=== PATIENT | male | born 1930 | race Caucasian/White ===

== ENCOUNTER 2019-10-05 17:04 | Emergency (ER) | payer MEDICARE ==
[~2019-10-05] VITALS: Ht 170.2 cm; Wt 79.4 kg
--- NOTE | 2019-10-05 17:11 | Emergency Room Report ---
History of Present Illness General Chief Complaint: Syncope Source: Patient, EMS Present Illness HPI 89-year-old male history of CABG, hypertension, CAD, presents with syncopal episode prior to arrival, patient was eating, felt nauseated, felt his vision narrow and then he passed out for a minute woke up suddenly with water being sprayed on his face, severity was moderate, lasting a few minutes no known aggravating factors alleviating factors appear to be stimulation Allergies: Coded Allergies: No Known Allergies (Unverified , 10/05/19) Patient History Past Medical History: see triage record Reviewed Nursing Documentation: PMH: Agreed; PSxH: Agreed Review of Systems All Other Systems: negative except mentioned in HPI Physical Exam Sp02 EP Interpretation: reviewed, normal General Appearance: well appearing, no apparent distress, alert Head: normocephalic, atraumatic Eyes: bilateral eye PERRL, bilateral eye EOMI ENT: uvula midline, moist mucus membranes Neck: supple, thyroid normal, supple/symm/no masses Respiratory: lungs clear, no respiratory distress, no retraction, no accessory muscle use Cardiovascular #1: normal peripheral pulses, regular rate, rhythm, no edema, no gallop, systolic murmur Gastrointestinal: non tender, soft, no guarding, no rebound Musculoskeletal: normal inspection Neurologic: alert, oriented x3 Psychiatric: mood/affect normal Skin: no rash, warm/dry Medical Decision Making Diagnostic Impression: Primary Impression: Syncope and collapse ER Course 89-year-old male presents with syncopal episode differential diagnosis includes syncope, cardiac arrhythmia, ACS We will admit patient Reevaluation 6:58 PM, patient does not want to stay joint decision-making was made with family they want to go home aware of the risks and benefits leaving his medical advice The patient has requested to leave the ED against medical advice. The patient reason(s) for leaving include, but are not limited to, the following: I want to go home. I believe this patient is of sound mind and competent to refuse medical care. The patient is responding and asking questions appropriately. The patient is oriented to person, place and time. The patient is not psychotic, delusional, suicidal, homicidal or hallucinating. The patient demonstrates a normal mental capacity to make decisions regarding their healthcare. The patient is clinically sober and does not appear to be under the influence of any illicit drugs at this time. The patient has been advised of the risks, in layman terms, of leaving AMA which include, but are not limited to , coma, permanent disability, loss of current lifestyle, delay in diagnosis. Alternatives have been offered - the patient remains steadfast in their wish to leave. The patient has been advised that should they change their mind they are welcome to return to this hospital, or any other, at any time. The patient understands that in no way does an AMA discharge mean that I do not want them to have the best medical care available. To this end, I have provided appropriate prescriptions, referrals, and discharge instructions. The patient did sign AMA paperwork. The above discussion was witnessed by another member of staff. Laboratory Tests Test 10/05/19 17:50 Sodium Level 142 MMOL/L (136-145) Potassium Level 3.7 MMOL/L (3.5-5.1) Chloride Level 108 MMOL/L (98-107) H Carbon Dioxide Level 21 MMOL/L (21-32) Anion Gap 13 mmol/L (5-15) Blood Urea Nitrogen 20 mg/dL (7-18) H Creatinine 1.4 MG/DL (0.55-1.30) H Estimate Glomerular Filtration Rate mL/min (>60) Glucose Level 126 MG/DL (74-106) H Calcium Level 8.9 MG/DL (8.5-10.1) Total Bilirubin 0.4 MG/DL (0.2-1.0) Aspartate Amino Transferase (AST) 11 U/L (15-37) L Alanine Aminotransferase (ALT) 20 U/L (12-78) Alkaline Phosphatase 66 U/L (46-116) Troponin I 0.000 ng/mL (0.000-0.056) Pro-B-Type Natriuretic Peptide 348 pg/mL (0-125) H Total Protein 6.6 G/DL (6.4-8.2) Albumin 3.4 G/DL (3.4-5.0) Globulin 3.2 g/dL Albumin/Globulin Ratio 1.1 (1.0-2.7) EKG Diagnostic Results EKG Time: 17:27 EP Interpretation: NSR, rate 68, QTc 448, no acute ST elevations, left axis deviation Rhythm Strip Diag. Results Rhythm Strip Time: 17:34 EP Interpretation: yes Rate: 69 Rhythm: NSR, no PVC's, no ectopy Chest X-Ray Diagnostic Results Chest X-Ray Diagnostic Results : Chest X-Ray Ordered: Yes # of Views/Limited/Complete: 1 View Indication: Shortness of Breath EP Interpretation: Yes Interpretation: other - Enlarged heart blunting of the left costophrenic angle possible mild pulmonary edema Impression: Other - Possible mild pulmonary edema Electronically Signed by: Frank Smallwood MD Disposition: AGAINST MEDICAL ADVICE Condition: Stable [facility] Patient Instructions: Syncope Additional Instructions: The patient was provided with discharge instructions, notified to follow-up with a primary care doctor and or specialist in the next 24-48 hours, and to return to the ED if they have worsening of their symptoms. Please note that this report is being documented using [employer] technology. This can lead to erroneous entry secondary to incorrect interpretation by the dictating instrument. FOLLOW-UP WITH YOUR PACK PRESS OPERATOR Frank Smallwood MD Oct 05, 2019 17:11
[2019-10-05 17:30] VITALS: BP 125/77
--- NOTE | 2019-10-05 18:05 | NUR ---
ED Nurse Note: Pt brought into ED for syncope today without loss of consciousness. Pt denies hitting head or injuring other body part. Pt denies pain, nausea, vomiting. Pt is alert and orientedx4, ambulatory. Skin intact. Pt son who is an MD is present. Pt set up on monitor.
[2019-10-05 18:27] LABS: ANION GAP 13 mmol/L (5-15); BLOOD UREA NITROGEN 20 mg/dL (7-18); CALCIUM 8.9 MG/DL (8.5-10.1); CARBON DIOXIDE 21 MMOL/L (21-32); CHLORIDE 108 MMOL/L (98-107); CREATININE 1.4 MG/DL (0.55-1.30); POTASSIUM 3.7 MMOL/L (3.5-5.1); SODIUM 142 MMOL/L (136-145)
[2019-10-05 18:34] LABS: ALANINE AMINOTRANSFERASE 20 U/L (12-78); ALBUMIN 3.4 G/DL (3.4-5.0); ALBUMIN/GLOBULIN RATIO 1.1 (1.0-2.7); ALKALINE PHOSPHATASE 66 U/L (46-116); ASPARTATE AMINO TRANSFERASE 11 U/L (15-37); BILIRUBIN,TOTAL 0.4 MG/DL (0.2-1.0)
--- NOTE | 2019-10-05 19:00 | NUR ---
ED Nurse Note: Pt and son who is a doctor states that they do not want to stay any longer. Son and pt state that there is nothing wrong with patient and they don't want to spend the night. Son says there's nothing to keep him here and he wants to spend the night in bed at home. MD and CN notified. AMA form signed. Pt notified of risks of AMA and verbalizes understanding.
--- NOTE | 2019-10-06 16:40 | Diagnostic Imaging Report ---
Indication: Shortness of breath Technique: One view of the chest Comparison: none Findings: The right hemidiaphragm is elevated. The heart is enlarged. There may be some patchy parenchymal opacities in the left mid and lower lung. Lungs and pleural spaces are otherwise clear. There is evidence of prior median sternotomy. Impression: Doubt acute process. Cannot rule out patchy parenchymal disease on the left, however. Cardiomegaly
== END 2019-10-05 19:00 | disposition left against medical advice (07) ==
LOC: EDBD 17:04 → EMR 17:20
DX: R55 Syncope and collapse (principal); I11.9 Hypertensive heart disease without heart failure; Z95.1 Presence of aortocoronary bypass graft
CPT/HCPCS: 36415; 71045; 80053; 83880; 84484; 93005; 99283